=== PATIENT | female | born 1985 | race American Indian/Alaskan Native ===

== ENCOUNTER 2017-03-16 15:20 | Inpatient (IN) | payer MEDICARE ==
[2017-03-16] MEDS ORDERED: ZOFRAN IV PRN (15:23)
--- NOTE | 2017-03-16 15:33 | History and Physical Report ---
History of Present Illness Date of examination: 03/16/17 History of present illness: 31yo EDC 11/05/17 @ 7.3 weeks presented to routine NOB appt in office today with c/o severe nausea, vomiting for 4 days. Voiced unable to tolerate any type of diet including clears. Santi any additional first trimester problems. Reports severe hyperemesis with each . Rx antiemetic ineffective in the past. Reports a loss of 10 lbs. U/S in office documented single viable IUP at 7.3 weeks gestation. Past History Past Medical History: blood transfusion, hematologic disorders (Sickle Cell C diease) Past Surgical History: BIOLOGICAL SCIENCE AIDE/uterine surgery (c/S for distress and failed induction) BIOLOGICAL SCIENCE AIDE History: abnormal PAP smear (2014) Family/Genetic History: cancer Social history: no significant social history - Obstetrical History Expected Date of Delivery: 10/30/17 Actual Gestation: 7 Week(s) 4 Day(s) : 5 Para: 1 (2009 C/S) Hx # Term Pregnancies: 1 Number of Pregnancies: 0 Spontaneous Abortions: 1 Induced : 2 Number of Living Children: 1 Medications and Allergies Allergies Allergy/AdvReac Type Severity Reaction Status Date / Time No Known Allergies Allergy Verified 10/17/14 14:19 Home Medications Medication Instructions Recorded Confirmed Last Taken Type Nitrofurantoin [place]/M-Cryst 100 mg PO Q12HR #14 capsule 04/03/15 Unknown Rx [Macrobid CAP] Vit-Fe Fumar-FA [ 1 tab PO QDAY #30 tablet 04/03/15 Unknown Rx Vitamin] No Known Home Medications [No 03/16/17 03/16/17 Unknown History Reported Home Medications] Active Meds: Active Medications Dextrose/Lactated Ringer's (D5lr) 1,000 mls @ 500 mls/hr IV DIRECT OMID Stop: 03/17/17 17:59 Dextrose/Lactated Ringer's (D5lr) 1,000 mls @ 150 mls/hr IV DIRECT OMID Multivitamins/Minerals 10 ml/ (Dextrose/Lactated Ringer's) 1,010 mls @ 150 mls/ hr IV ONCE ONE Stop: 03/16/17 22:06 Metoclopramide HCl (Reglan) 10 mg IV Q6H OMID Multivitamins/Iron/Calcium ( Vitamin) 1 each PO QDAY OMID Ondansetron HCl (Zofran) 4 mg IV Q6H PRN PRN Reason: N/V unrelieved by Reglan Promethazine HCl (Phenergan) [address] Q6H OMID Results Result Diagrams: 03/17/17 06:07 03/16/17 19:22 All other labs normal. Assessment and Plan A: IUP at 7.3 weeks hyperemesis Sickle Cell C dieased P; IV hydration Antiemetics
[2017-03-16] MEDS ORDERED: D5LR 1,000 ML IV SCH (16:00)
[2017-03-16] MEDS ORDERED: INFUVITE 10 ML in D5LR 1,000 ML IV ONE (17:30)
[2017-03-16] MEDS: PHENERGAN PR SCH ×2 (17:34→23:45)
[2017-03-16] MEDS: REGLAN IV SCH ×2 (17:34→23:44)
[2017-03-16 18:44] LABS: HIV-1 Antigen p24 Non React (Non React); HIVR-1/2 Ab Non React (Non React)
[2017-03-16 19:51] LABS: Basophils % (Auto) 0.6 % (0.0-1.8); Eosinophils % (Auto) 0.1 % (0.0-4.3); Hemoglobin 6.7 gm/dl (10.1-14.3); Mean Corpuscular HGB Conc 36 % (30-34); Mean Corpuscular Hemoglobin 35 pg (28-32); Mean Corpuscular Volume 99 fl (79-97); Platelet Count 463 K/mm3 (140-440); Red Blood Count 1.89 M/mm3 (3.65-5.03); Red Cell Distribution Width 16.9 % (13.2-15.2); White Blood Count 10.4 K/mm3 (4.5-11.0)
[2017-03-16] MEDS: D5LR 1,000 ML IV SCH (19:56)
[2017-03-16 19:58] LABS: HIV-1 Antigen p24 Non React (Non React); HIVR-1/2 Ab Non React (Non React); Hematocrit 18.6 % (30.3-42.9)
[2017-03-16 20:18] LABS: Amylase 43 units/L (27-131); Lipase 27 units/L (13-60)
[2017-03-16 20:19] LABS: Anion Gap 18 mmol/L; BUN/Creatinine Ratio 15; Blood Urea Nitrogen 6 mg/dL (7-17); Calcium 9.1 mg/dL (8.4-10.2); Carbon Dioxide 23 mmol/L (22-30); Chloride 99.4 mmol/L (98-107); Glucose 184 mg/dL (65-100); Potassium 3.3 mmol/L (3.6-5.0); Sodium 137 mmol/L (137-145)
[2017-03-16 20:19] LABS: Bacteria,Urine 4+ /HPF (Negative); Bilirubin,Urine NEG (Negative); Blood,Urine NEG (Negative); Ketones,Urine 20 mg/dL (Negative); Leukocyte Esterase,Urine SM (Negative); Mucus,Urine FEW /HPF; Nitrite,Urine NEG (Negative)
[2017-03-17] MEDS: D5LR 1,000 ML IV SCH ×3 (01:48→22:55)
[2017-03-17] MEDS: REGLAN IV SCH ×4 (05:31→22:52)
[2017-03-17] MEDS: PHENERGAN PR SCH ×4 (05:33→23:00)
[2017-03-17] MEDS ORDERED: TYLENOL PO PRN (05:41)
[2017-03-17 06:21] LABS: Hemoglobin 6.2 gm/dl (10.1-14.3)
[2017-03-17] MEDS: KCL 10MEQ/100ML 10 MEQ/100 ML BAG IV SCH ×2 (06:31→10:30)
[2017-03-17 06:36] LABS: Hematocrit 17.4 % (30.3-42.9)
[2017-03-17] MEDS: PRENATAL VITAMIN PO SCH (10:30)
--- NOTE | 2017-03-17 13:39 | Hem/Onc Consultation ---
History of Present Illness - Reason for Consult Consult date: 03/17/17 - History of Present Illness Patient with history of Hb SS. Last transfused in July 2016 at [facility] [place]. Admitted with vomitting associated with . Now much better with hydration. Her normal Hb is around 7-8 per her recollection. Followed by Dr Neves at [facility] [place]. Not compliant with follow up. Past History Past Medical History: other (Hb SS disease) Social history: no significant social history Medications and Allergies Allergies Allergy/AdvReac Type Severity Reaction Status Date / Time No Known Allergies Allergy Verified 10/17/14 14:19 Home Medications Medication Instructions Recorded Confirmed Last Taken Type Nitrofurantoin [place]/M-Cryst 100 mg PO Q12HR #14 capsule 04/03/15 Unknown Rx [Macrobid CAP] Vit-Fe Fumar-FA [ 1 tab PO QDAY #30 tablet 04/03/15 Unknown Rx Vitamin] No Known Home Medications [No 03/16/17 03/16/17 Unknown History Reported Home Medications] Active Meds: Active Medications Acetaminophen (Tylenol) 1,000 mg PO Q4H PRN PRN Reason: Pain, Mild (1-3) Dextrose/Lactated Ringer's (D5lr) 1,000 mls @ 500 mls/hr IV DIRECT OMID Stop: 03/17/17 17:59 Last Admin: 03/16/17 17:34 Dose: 500 mls/hr Dextrose/Lactated Ringer's (D5lr) 1,000 mls @ 150 mls/hr IV DIRECT OMID Last Admin: 03/17/17 01:48 Dose: 150 mls/hr Metoclopramide HCl (Reglan) 10 mg IV Q6H OMID Last Admin: 03/17/17 05:31 Dose: 10 mg Multivitamins/Iron/Calcium ( Vitamin) 1 each PO QDAY OMID Ondansetron HCl (Zofran) 4 mg IV Q6H PRN PRN Reason: N/V unrelieved by Reglan Promethazine HCl (Phenergan) 25 mg CO Q6H OMID Last Admin: 03/17/17 05:33 Dose: Not Given Review of Systems All systems: negative (moderate pain) Exam - Constitutional Vitals: Last Vital Signs Temp 98.9 F 03/17/17 08:05 Pulse 75 03/17/17 08:05 Resp 18 03/17/17 08:05 BP 89/43 03/17/17 08:05 Pulse Ox 100 03/16/17 17:16 Pain Intensity (0-10): 4/10 General appearance: no acute distress - EENT Eyes: PERRL ENT: hearing intact Lymph node exam: negative cervical - Neck Neck: normal ROM - Respiratory Respiratory: bilateral: CTA - Cardiovascular Rhythm: regular Heart Sounds: Present: S1 & S2 Extremities: no ischemia - Gastrointestinal General gastrointestinal: Present: soft - Musculoskeletal Musculoskeletal: strength equal bilaterally - Neurologic Neurologic: CNII-XII intact - Psychiatric Psychiatric: appropriate mood/affect Results - Labs lab Results: Laboratory Results - last 24 hr 03/16/17 03/16/17 03/16/17 15:27 15:29 17:32 WBC RBC Hgb Hct MCV MCH MCHC RDW Plt Count Lymph % (Auto) [place] % (Auto) Eos % (Auto) Baso % (Auto) Lymph # [place] # Eos # Baso # Seg Neutrophils % Seg Neutrophils # Sodium Potassium Chloride Carbon Dioxide Anion Gap BUN Creatinine Estimated GFR BUN/Creatinine Ratio Glucose Calcium Amylase Lipase TSH 0.105 L Free T4 Urine Color Urine Turbidity Urine pH Ur Specific [place] Urine Protein Urine Glucose (UA) Urine Ketones Urine Blood Urine Nitrite Urine Bilirubin Urine Urobilinogen Ur Leukocyte Esterase Urine WBC (Auto) Urine RBC (Auto) U Epithel Cells (Auto) Urine Bacteria (Auto) Urine Mucus RPR Nonreactive Hepatitis A IgM Ab Hep Bs Antigen Hep B Core IgM Ab Hepatitis C Antibody HIV 1&2 Antibody Rapid Non react HIV P24 Antigen Non react Rubella IgG Antibody Blood Type Antibody Screen 03/16/17 03/16/17 03/16/17 17:32 19:22 19:22 WBC 10.4 RBC 1.89 L Hgb 6.7 L Hct 18.6 L* MCV 99 H MCH 35 H MCHC 36 H RDW 16.9 H Plt Count 463 H Lymph % (Auto) 20.4 [place] % (Auto) 3.2 Eos % (Auto) 0.1 Baso % (Auto) 0.6 Lymph # 2.1 [place] # 0.3 Eos # 0.0 Baso # 0.1 Seg Neutrophils % 75.7 H Seg Neutrophils # 7.9 H Sodium Potassium Chloride Carbon Dioxide Anion Gap BUN Creatinine Estimated GFR BUN/Creatinine Ratio Glucose Calcium Amylase 43 Lipase 27 TSH Free T4 Urine Color Urine Turbidity Urine pH Ur Specific [place] Urine Protein Urine Glucose (UA) Urine Ketones Urine Blood Urine Nitrite Urine Bilirubin Urine Urobilinogen Ur Leukocyte Esterase Urine WBC (Auto) Urine RBC (Auto) U Epithel Cells (Auto) Urine Bacteria (Auto) Urine Mucus RPR Hepatitis A IgM Ab Non-reactive Hep Bs Antigen Non-reactive Hep B Core IgM Ab Non-reactive Hepatitis C Antibody Non-reactive HIV 1&2 Antibody Rapid Non react HIV P24 Antigen Non react Rubella IgG Antibody Immune Blood Type Antibody Screen 03/16/17 03/16/17 03/16/17 19:22 19:22 19:22 WBC RBC Hgb Hct MCV MCH MCHC RDW Plt Count Lymph % (Auto) [place] % (Auto) Eos % (Auto) Baso % (Auto) Lymph # [place] # Eos # Baso # Seg Neutrophils % Seg Neutrophils # Sodium Potassium Chloride Carbon Dioxide Anion Gap BUN Creatinine Estimated GFR BUN/Creatinine Ratio Glucose Calcium Amylase Lipase TSH Free T4 1.29 Urine Color Urine Turbidity Urine pH Ur Specific [place] Urine Protein Urine Glucose (UA) Urine Ketones Urine Blood Urine Nitrite Urine Bilirubin Urine Urobilinogen Ur Leukocyte Esterase Urine WBC (Auto) Urine RBC (Auto) U Epithel Cells (Auto) Urine Bacteria (Auto) Urine Mucus RPR Hepatitis A IgM Ab Hep Bs Antigen Non-reactive Hep B Core IgM Ab Hepatitis C Antibody HIV 1&2 Antibody Rapid HIV P24 Antigen Rubella IgG Antibody Blood Type A POSITIVE Antibody Screen Negative 03/16/17 03/16/17 03/16/17 19:22 19:53 21:57 WBC RBC Hgb Hct MCV MCH MCHC RDW Plt Count Lymph % (Auto) [place] % (Auto) Eos % (Auto) Baso % (Auto) Lymph # [place] # Eos # Baso # Seg Neutrophils % Seg Neutrophils # Sodium 137 Potassium 3.3 L Chloride 99.4 Carbon Dioxide 23 Anion Gap 18 BUN 6 L Creatinine 0.4 L Estimated GFR > 60 BUN/Creatinine Ratio 15 Glucose 184 H Calcium 9.1 Amylase Lipase TSH Free T4 Urine Color Yellow Urine Turbidity Clear Urine pH 5.0 Ur Specific [place] 1.011 Urine Protein 30 mg/dl Urine Glucose (UA) Neg Urine Ketones 20 Urine Blood Neg Urine Nitrite Neg Urine Bilirubin Neg Urine Urobilinogen 2.0 Ur Leukocyte Esterase Sm Urine WBC (Auto) 13.0 H Urine RBC (Auto) 3.0 U Epithel Cells (Auto) 1.0 Urine Bacteria (Auto) 4+ Urine Mucus Few RPR Hepatitis A IgM Ab Hep Bs Antigen Hep B Core IgM Ab Hepatitis C Antibody HIV 1&2 Antibody Rapid HIV P24 Antigen Rubella IgG Antibody Blood Type A POSITIVE Antibody Screen Negative 03/17/17 06:07 WBC RBC Hgb 6.2 L Hct 17.4 L* MCV MCH MCHC RDW Plt Count Lymph % (Auto) [place] % (Auto) Eos % (Auto) Baso % (Auto) Lymph # [place] # Eos # Baso # Seg Neutrophils % Seg Neutrophils # Sodium Potassium Chloride Carbon Dioxide Anion Gap BUN Creatinine Estimated GFR BUN/Creatinine Ratio Glucose Calcium Amylase Lipase TSH Free T4 Urine Color Urine Turbidity Urine pH Ur Specific [place] Urine Protein Urine Glucose (UA) Urine Ketones Urine Blood Urine Nitrite Urine Bilirubin Urine Urobilinogen Ur Leukocyte Esterase Urine WBC (Auto) Urine RBC (Auto) U Epithel Cells (Auto) Urine Bacteria (Auto) Urine Mucus RPR Hepatitis A IgM Ab Hep Bs Antigen Hep B Core IgM Ab Hepatitis C Antibody HIV 1&2 Antibody Rapid HIV P24 Antigen Rubella IgG Antibody Blood Type Antibody Screen Assessment and Plan - Patient Problems (1) Anemia Current Visit: No Status: Acute Plan to address problem: Hb is lower than expected. patient insists she has SS not SC as mentioned in notes. Will transfuse PRBC. Needs outpatient follow up. She agrees. Pain control per OB service.
[2017-03-17] MEDS ORDERED: NACL 0.9% 500 ML 500 ML IV NR (13:40)
--- NOTE | 2017-03-17 13:49 | Progress Note ---
Assessment and Plan O; H/H: 6.2/17.4 A: IUP at 7.4 weeks gestation Hyperemesis Sickle Cell C diease Severe Anemia P: Opal Miner recommend blood transfusion (one unit) continue antiemetic and plan to start po meds Subjective - Subjective Date of service: 03/17/17 Interval history: 31yo EDC 11/05/17 @ 7.3 weeks presented to routine NOB appt in office today with c/o severe nausea, vomiting for 4 days. Voiced unable to tolerate any type of diet including clears. Santi any additional first trimester problems. Reports severe hyperemesis with each . Rx antiemetic ineffective in the past. Reports a loss of 10 lbs. U/S in office documented single viable IUP at 7.3 weeks gestation. Patient reports: other (Tolerating clear liquid and soft diet w/o n/V), no new complaints Objective - Vital Signs Vital Signs: Vital Signs - 12hr 03/17/17 03/17/17 04:35 08:05 Temperature 98.0 F 98.9 F Pulse Rate 84 75 Respiratory 20 18 Rate Blood Pressure 90/55 89/43 [Left] - Exam Breasts: deferred Abdomen: Present: normal appearance, soft FHR comments: U/s in office confirmed single viable 7.3 week viable IUP - Labs Labs: Abnormal Labs 03/16/17 03/16/17 03/16/17 17:32 19:22 19:22 RBC 1.89 L Hgb 6.7 L Hct 18.6 L* MCV 99 H MCH 35 H MCHC 36 H RDW 16.9 H Plt Count 463 H Seg Neutrophils % 75.7 H Seg Neutrophils # 7.9 H Potassium 3.3 L BUN 6 L Creatinine 0.4 L Glucose 184 H TSH 0.105 L Urine WBC (Auto) Crossmatch 03/16/17 03/16/17 03/17/17 19:53 21:57 06:07 RBC Hgb 6.2 L Hct 17.4 L* MCV MCH MCHC RDW Plt Count Seg Neutrophils % Seg Neutrophils # Potassium BUN Creatinine Glucose TSH Urine WBC (Auto) 13.0 H Crossmatch See Detail Laboratory Results - last 24 hr 03/16/17 03/16/17 03/16/17 15:27 15:29 17:32 WBC RBC Hgb Hct MCV MCH MCHC RDW Plt Count Lymph % (Auto) [place] % (Auto) Eos % (Auto) Baso % (Auto) Lymph # [place] # Eos # Baso # Seg Neutrophils % Seg Neutrophils # Sodium Potassium Chloride Carbon Dioxide Anion Gap BUN Creatinine Estimated GFR BUN/Creatinine Ratio Glucose Calcium Amylase Lipase TSH 0.105 L Free T4 Urine Color Urine Turbidity Urine pH Ur Specific [place] Urine Protein Urine Glucose (UA) Urine Ketones Urine Blood Urine Nitrite Urine Bilirubin Urine Urobilinogen Ur Leukocyte Esterase Urine WBC (Auto) Urine RBC (Auto) U Epithel Cells (Auto) Urine Bacteria (Auto) Urine Mucus RPR Nonreactive Hepatitis A IgM Ab Hep Bs Antigen Hep B Core IgM Ab Hepatitis C Antibody HIV 1&2 Antibody Rapid Non react HIV P24 Antigen Non react Rubella IgG Antibody Blood Type Antibody Screen Crossmatch 03/16/17 03/16/17 03/16/17 17:32 19:22 19:22 WBC 10.4 RBC 1.89 L Hgb 6.7 L Hct 18.6 L* MCV 99 H MCH 35 H MCHC 36 H RDW 16.9 H Plt Count 463 H Lymph % (Auto) 20.4 [place] % (Auto) 3.2 Eos % (Auto) 0.1 Baso % (Auto) 0.6 Lymph # 2.1 [place] # 0.3 Eos # 0.0 Baso # 0.1 Seg Neutrophils % 75.7 H Seg Neutrophils # 7.9 H Sodium Potassium Chloride Carbon Dioxide Anion Gap BUN Creatinine Estimated GFR BUN/Creatinine Ratio Glucose Calcium Amylase 43 Lipase 27 TSH Free T4 Urine Color Urine Turbidity Urine pH Ur Specific [place] Urine Protein Urine Glucose (UA) Urine Ketones Urine Blood Urine Nitrite Urine Bilirubin Urine Urobilinogen Ur Leukocyte Esterase Urine WBC (Auto) Urine RBC (Auto) U Epithel Cells (Auto) Urine Bacteria (Auto) Urine Mucus RPR Hepatitis A IgM Ab Non-reactive Hep Bs Antigen Non-reactive Hep B Core IgM Ab Non-reactive Hepatitis C Antibody Non-reactive HIV 1&2 Antibody Rapid Non react HIV P24 Antigen Non react Rubella IgG Antibody Immune Blood Type Antibody Screen Crossmatch 03/16/17 03/16/17 03/16/17 19:22 19:22 19:22 WBC RBC Hgb Hct MCV MCH MCHC RDW Plt Count Lymph % (Auto) [place] % (Auto) Eos % (Auto) Baso % (Auto) Lymph # [place] # Eos # Baso # Seg Neutrophils % Seg Neutrophils # Sodium Potassium Chloride Carbon Dioxide Anion Gap BUN Creatinine Estimated GFR BUN/Creatinine Ratio Glucose Calcium Amylase Lipase TSH Free T4 1.29 Urine Color Urine Turbidity Urine pH Ur Specific [place] Urine Protein Urine Glucose (UA) Urine Ketones Urine Blood Urine Nitrite Urine Bilirubin Urine Urobilinogen Ur Leukocyte Esterase Urine WBC (Auto) Urine RBC (Auto) U Epithel Cells (Auto) Urine Bacteria (Auto) Urine Mucus RPR Hepatitis A IgM Ab Hep Bs Antigen Non-reactive Hep B Core IgM Ab Hepatitis C Antibody HIV 1&2 Antibody Rapid HIV P24 Antigen Rubella IgG Antibody Blood Type A POSITIVE Antibody Screen Negative Crossmatch 03/16/17 03/16/17 03/16/17 19:22 19:53 21:57 WBC RBC Hgb Hct MCV MCH MCHC RDW Plt Count Lymph % (Auto) [place] % (Auto) Eos % (Auto) Baso % (Auto) Lymph # [place] # Eos # Baso # Seg Neutrophils % Seg Neutrophils # Sodium 137 Potassium 3.3 L Chloride 99.4 Carbon Dioxide 23 Anion Gap 18 BUN 6 L Creatinine 0.4 L Estimated GFR > 60 BUN/Creatinine Ratio 15 Glucose 184 H Calcium 9.1 Amylase Lipase TSH Free T4 Urine Color Yellow Urine Turbidity Clear Urine pH 5.0 Ur Specific [place] 1.011 Urine Protein 30 mg/dl Urine Glucose (UA) Neg Urine Ketones 20 Urine Blood Neg Urine Nitrite Neg Urine Bilirubin Neg Urine Urobilinogen 2.0 Ur Leukocyte Esterase Sm Urine WBC (Auto) 13.0 H Urine RBC (Auto) 3.0 U Epithel Cells (Auto) 1.0 Urine Bacteria (Auto) 4+ Urine Mucus Few RPR Hepatitis A IgM Ab Hep Bs Antigen Hep B Core IgM Ab Hepatitis C Antibody HIV 1&2 Antibody Rapid HIV P24 Antigen Rubella IgG Antibody Blood Type A POSITIVE Antibody Screen Negative Crossmatch See Detail 03/17/17 06:07 WBC RBC Hgb 6.2 L Hct 17.4 L* MCV MCH MCHC RDW Plt Count Lymph % (Auto) [place] % (Auto) Eos % (Auto) Baso % (Auto) Lymph # [place] # Eos # Baso # Seg Neutrophils % Seg Neutrophils # Sodium Potassium Chloride Carbon Dioxide Anion Gap BUN Creatinine Estimated GFR BUN/Creatinine Ratio Glucose Calcium Amylase Lipase TSH Free T4 Urine Color Urine Turbidity Urine pH Ur Specific [place] Urine Protein Urine Glucose (UA) Urine Ketones Urine Blood Urine Nitrite Urine Bilirubin Urine Urobilinogen Ur Leukocyte Esterase Urine WBC (Auto) Urine RBC (Auto) U Epithel Cells (Auto) Urine Bacteria (Auto) Urine Mucus RPR Hepatitis A IgM Ab Hep Bs Antigen Hep B Core IgM Ab Hepatitis C Antibody HIV 1&2 Antibody Rapid HIV P24 Antigen Rubella IgG Antibody Blood Type Antibody Screen Crossmatch
[2017-03-17] MEDS ORDERED: BENADRYL IV ONE (13:50)
[2017-03-17] MEDS ORDERED: TRANSDERM-SCOP TD SCH (14:00)
[2017-03-17 14:28] LABS: Bilirubin,Direct 0.4 mg/dL (0-0.2); Bilirubin,Total 2.4 mg/dL (0.1-1.2)
[2017-03-17 23:09] LABS: Hematocrit 22.9 % (30.3-42.9)
[2017-03-18] MEDS: REGLAN PO SCH ×2 (05:02→12:40)
[2017-03-18] MEDS: PHENERGAN PR SCH ×2 (05:03→12:40)
--- NOTE | 2017-03-18 08:30 | Progress Note ---
Assessment and Plan A: IUP at 7 wks Hyperemesis Sickle Cell-C Disease with transfusion of one unit of packed red blood cells Clinically improved P: Discharge today with follow up on Tuesday in office with Dr Lopez. Subjective - Subjective Date of service: 03/18/17 Principal diagnosis: Hyperemesis at 7wks, Sickle Cell C Disease Interval history: Pt feels better today. She feel ready to go home. She is tolerating clear diet without emesis and has a soft diet ordered. Patient reports: other (Tolerating clear liquid and soft diet w/o n/V), no new complaints Objective - Vital Signs Vital Signs: Vital Signs - 12hr 03/18/17 03/18/17 00:00 04:05 Temperature 99.1 F 98.0 F Pulse Rate 82 86 Respiratory 18 18 Rate Blood Pressure 98/59 95/56 [Left] - Exam Breasts: deferred Cardiovascular: Regular rate Lungs: Clear to auscultation Abdomen: Present: soft Extremities: normal - Labs Labs: Abnormal Labs 03/16/17 03/16/17 03/16/17 17:32 19:22 19:22 RBC 1.89 L Hgb 6.7 L Hct 18.6 L* MCV 99 H MCH 35 H MCHC 36 H RDW 16.9 H Plt Count 463 H Seg Neutrophils % 75.7 H Seg Neutrophils # 7.9 H Potassium 3.3 L BUN 6 L Creatinine 0.4 L Glucose 184 H Total Bilirubin Direct Bilirubin Lactate Dehydrogenase TSH 0.105 L Urine WBC (Auto) Crossmatch 03/16/17 03/16/17 03/17/17 19:53 21:57 06:07 RBC Hgb 6.2 L Hct 17.4 L* MCV MCH MCHC RDW Plt Count Seg Neutrophils % Seg Neutrophils # Potassium BUN Creatinine Glucose Total Bilirubin Direct Bilirubin Lactate Dehydrogenase TSH Urine WBC (Auto) 13.0 H Crossmatch See Detail 03/17/17 03/17/17 13:50 22:56 RBC Hgb 8.0 L Hct 22.9 L MCV MCH MCHC RDW Plt Count Seg Neutrophils % Seg Neutrophils # Potassium BUN Creatinine Glucose Total Bilirubin 2.40 H Direct Bilirubin 0.4 H Lactate Dehydrogenase 201 H TSH Urine WBC (Auto) Crossmatch Laboratory Results - last 24 hr 03/16/17 03/16/17 03/17/17 15:29 21:57 13:00 Hgb Hct Total Bilirubin Direct Bilirubin Indirect Bilirubin Lactate Dehydrogenase Vitamin B12 Urine Ketones Negative RPR Nonreactive Blood Type A POSITIVE Antibody Screen Negative Crossmatch See Detail 03/17/17 03/17/17 03/17/17 13:35 13:50 22:56 Hgb 8.0 L Hct 22.9 L Total Bilirubin 2.40 H Direct Bilirubin 0.4 H Indirect Bilirubin 2.0 Lactate Dehydrogenase 201 H Vitamin B12 425.3 Urine Ketones RPR Blood Type Antibody Screen Crossmatch
--- NOTE | 2017-03-18 09:16 | Discharge Summary ---
Providers - Providers Date of Admission: 03/16/17 16:20 Date of discharge: 03/18/17 Attending physician: PAULO WAGNER MD 03/17/17 08:09 Consult to Physician [CONS] Routine Consulting Provider: PAULO WAGNER Reason For Exam: 7 week preg. hgb C diease Place consult to:: anodizing line operator Notified:: yes Phone number called:: [phone] Was contact made?: Yes If yes, spoke with:: katie Time called:: 11:40 Comment:: left message with service Primary care physician: GUM DIPPER Hospitalization Reason for admission: other (IUP at 7 wks, hyperemesis ) Discharge diagnosis: other (IUP at 7 wks, hyperemesis, Sickle cell C Disease ) Hospital course: Pt was admitted with hyperemesis for IV antiemetics, hydration and hydration. While hospitalized, severe anemia was discovered, hematology was consulted, and she was transfused one unit of blood. By HD#2 she felt much better, was tolerating diet without emesis and was discharge home. Condition at discharge: Stable Disposition: [id number] TO HOME OR SELFCARE - Discharge Diagnoses (1) Sickle cell anemia of mother during Status: Acute (2) 7 weeks gestation of Status: Acute (3) Anemia Status: Acute Qualifiers: Anemia type: other cause Other causes of anemia: other cause, not classified Qualified Code(s): D64.89 - Other specified anemias (4) Dehydration Status: Acute Plan - Discharge Medications Prescriptions: Metoclopramide [Reglan] 10 mg PO TID #90 tab Promethazine [Phenergan] 25 mg AL Q6HR PRN #30 supp.rect PRN Reason: Nausea - Provider Discharge Summary Activity: routine Diet: routine (avoid spicy and fatty foods, avoid citrus juice and tomatoes) Additional instructions: [] Smoking cessation referral if applicable(refer to patient education folder for contact #) [] Refer to [facility] Booklet Call your doctor immediately for: * Fever > 100.5 * Heavy vaginal bleeding ( >1 pad per hour) * Severe persistent headache * Shortness of breath * Reddened, hot, painful area to leg or breast * Drainage or odor from incision. * Keep incision clean and dry at all times and follow doctor's instructions regarding bathing/showering - Follow up plan Follow up: PRIMARY CAREMD [Primary Care Provider] - 7 Days GARFIELD DEVI MD [Staff Physician] - 7 Days MICKEY STAPLES MD [Staff Physician] - 03/21/17
[2017-03-18] MEDS: PRENATAL VITAMIN PO SCH (10:05)
[2017-03-18 13:15] VITALS: BP 87/54
== END 2017-03-18 13:40 | disposition home or self-care (01) | DRG 781 ==
LOC: UNDOADMOB 15:20 → 3A 15:20 → OB 16:20 → OBSVTOIN 16:20
PROVIDERS: ADMIT Obstetrics & Gynecology; ATTEND Obstetrics & Gynecology
PROC: 30233N1 Transfusion of Nonautologous Red Blood Cells into Peripheral Vein, Percutaneous Approach (ICD-10-PCS; principal; 2017-03-17)
DX: O21.0 Mild hyperemesis gravidarum (principal); O99.011 Anemia complicating pregnancy, first trimester; D57.20 Sickle-cell/Hb-C disease without crisis; Z3A.01 Less than 8 weeks gestation of pregnancy; O26.891 Other specified pregnancy related conditions, first trimester; E86.0 Dehydration
CPT/HCPCS: 36415; 80048; 80074; 81001; 82010; 82150; 82248; 82607; 83010; 83615; 83690; 84439; 84443; 85014; 85018; 85025; 86592; 86706; 86762; 86850; 86900; 86901; 86920; 87806; J1200; J2765; J3480; J7040; J7121; P9016

== ENCOUNTER 2017-08-22 20:52 | Inpatient (IN) | payer MEDICARE ==
[2017-08-22] MEDS ORDERED: LACTATED RINGERS 500 ML IV ONE (21:51)
[2017-08-22] MEDS ORDERED: CITRATE OF MAGNESIA PO ONE (22:19)
[2017-08-22] MEDS ORDERED: MYLICON PO ONE (22:25)
[2017-08-23 00:20] LABS: Bacteria,Urine 3+ /HPF (Negative); Bilirubin,Urine NEG (Negative); Blood,Urine SM (Negative); Color,Urine Amber (Yellow); Mucus,Urine 1+ /HPF; Urobilinogen,Urine < 2.0 mg/dL (<2.0)
[2017-08-23 00:21] LABS: WBC,Urine > 182.0 /HPF (0.0-6.0)
[2017-08-23] MEDS ORDERED: MORPHINE IV ONE (00:45)
[2017-08-23] MEDS ORDERED: TYLENOL PO PRN (00:45)
[2017-08-23] MEDS ORDERED: AMBIEN PO PRN (00:45)
[2017-08-23] MEDS ORDERED: COLACE PO PRN (00:45)
--- NOTE | 2017-08-23 03:53 | History and Physical Report ---
History of Present Illness Date of examination: 08/23/17 Chief complaint: back pain History of present illness: Pt is a 31 year old -[place] female LESLEY 10/30/17 at 30w2d presents with severe right sided back pain since yesterday afternoon and was found to have a complicated UTI. She denied vaginal bleeding, contractions or leakage of fluid. She has had care at [facility] since 7 weeks complicated by hyperemesis gravidarum, Sickle Cell C Disease s/p blood transfusion in Mar 2017, previous section, EIF followed by MFM, UTI with hospitalization in Mar 2017 non-compliant with suppression, and thrombocytosis followed by Hematology. Past History Past Medical History: hematologic disorders (Sicke Cell C Disease, Anemia ) Past Surgical History: section, D&C Family/Genetic History: cancer Social history: no significant social history - Obstetrical History Expected Date of Delivery: 10/30/17 Actual Gestation: 30 Week(s) 3 Day(s) : 5 Para: 1 Hx # Term Pregnancies: 1 Number of Pregnancies: 0 Spontaneous Abortions: 2 Induced : 1 Number of Living Children: 1 Medications and Allergies Allergies Allergy/AdvReac Type Severity Reaction Status Date / Time No Known Allergies Allergy Verified 10/17/14 14:19 Home Medications Medication Instructions Recorded Confirmed Last Taken Type Vit-Fe Fumar-FA [ 1 tab PO QDAY #30 tablet 04/03/15 08/22/17 10:00 Rx Vitamin] Active Meds: Active Medications Acetaminophen (Tylenol) 650 mg PO Q4H PRN PRN Reason: Pain MILD(1-3)/Fever >100.5/BLAND Docusate Sodium (Colace) 100 mg PO Q12H PRN PRN Reason: Constipation Lactated Ringer's (Lactated Ringers) 1,000 mls @ 125 mls/hr IV DIRECT OMID Multivitamins/Iron/Calcium ( Vitamin) 1 each PO QDAY OMID Zolpidem Tartrate (Ambien) 10 mg PO ONCE PRN PRN Reason: Sleep Review of Systems All systems: negative Musculoskeletal: low back pain - Vital Signs Vital signs: Vital Signs Temp Pulse Resp BP Pulse Ox 99.3 F 92 H 16 98/55 96 08/22/17 21:43 08/22/17 21:43 08/22/17 21:43 08/22/17 21:43 08/22/17 21:43 Temp Pulse Resp BP Pulse Ox 99.3 F 114 H 16 96/52 97 08/22/17 21:43 08/23/17 03:53 08/22/17 21:43 08/22/17 22:17 08/23/17 03:53 - Physical Exam Breasts: Positive: deferred Cardiovascular: Regular rate Lungs: Positive: Clear to auscultation Abdomen: Positive: soft (gravid ) Uterus: Positive: enlarged (gravid ) Extremities: Positive: normal - Obstetrical FHR: auscultation normal Uterine Contraction Monitor Mode: External Uterine Contraction Pattern: Absent Uterine Tone Measurement Phase: Resting Results Abnormal lab results 08/22/17 Range/Units 00:18 Urine WBC (Auto) > 182.0 H (0.0-6.0) /HPF All other labs normal. Assessment and Plan A: IUP at 30w2d Complicated UTI with right CVA tenderness Sickle Cell C Disease Thrombocytosis P: Admit to antepartum service. Urine culture IV Rocephin Pain medication PRN Continue to closely monitor maternal and status
[2017-08-23] MEDS ORDERED: MORPHINE IV PRN (03:54)
[2017-08-23] MEDS ORDERED: ZOFRAN IV PRN (03:55)
[2017-08-23] MEDS ORDERED: cefTRIAXone 1 GM in NACL 0.9% 20 ML IV SCH (04:00)
[2017-08-23] MEDS ORDERED: ROCEPHIN/NS 1 GM/50 ML 1 GM/50 ML BAG IV SCH (04:00)
[2017-08-23] MEDS: PERCOCET 5/325 PO PRN ×2 (09:33→17:28)
[2017-08-23] MEDS: PRENATAL VITAMIN PO SCH (09:33)
[2017-08-23] MEDS: LACTATED RINGERS 1,000 ML IV SCH (14:00)
[2017-08-24] MEDS: LACTATED RINGERS 1,000 ML IV SCH ×2 (00:19→18:00)
[2017-08-24] MEDS: cefTRIAXone 1 GM in NACL 0.9% 20 ML IV SCH (04:08)
[2017-08-24] MEDS: PERCOCET 5/325 PO PRN ×2 (13:00→20:04)
--- NOTE | 2017-08-24 17:13 | Progress Note ---
Assessment and Plan A/P HD#2 IUP 30 weeks complicated UTI Rocephin [id number] switch to po in am and if tolerating and afebrile change cultures grew gram neg ( Urine) Subjective - Subjective Date of service: 08/24/17 Principal diagnosis: complicated UTI , sickle cell, thrombocyto Patient reports: movement normal, no new complaints, no loss of fluid, no vaginal bleeding Objective - Vital Signs Vital Signs: Vital Signs - 12hr 08/24/17 11:10 Pulse Rate 88 Blood Pressure 95/52 - Exam Breasts: normal Cardiovascular: Regular rate, Normal S1 Lungs: Clear to auscultation, Normal air movement Abdomen: Present: normal appearance, soft, normal bowel sounds. Absent: distention, tenderness, guarding Vulva: both: normal Uterus: Present: normal, firm, fundal height above umbilicus FHR: category 1 Extremities: normal Deep Tendon Reflex Grade: Normal +2 - Labs Labs: Abnormal Labs 08/22/17 00:18 Urine WBC (Auto) > 182.0 H
[2017-08-24] MEDS: PRENATAL VITAMIN PO SCH (19:15)
[2017-08-25] MEDS: cefTRIAXone 1 GM in NACL 0.9% 20 ML IV SCH (04:56)
[2017-08-25 07:39] VITALS: BP 96/52
[2017-08-25 08:18] LABS: Hemoglobin 6.6 gm/dl (10.1-14.3); Mean Corpuscular HGB Conc 33 % (30-34); Mean Corpuscular Hemoglobin 35 pg (28-32); Mean Corpuscular Volume 104 fl (79-97); Platelet Count 500 K/mm3 (140-440); Red Cell Distribution Width 17.3 % (13.2-15.2)
[2017-08-25 08:29] LABS: Hematocrit 19.8 % (30.3-42.9)
--- NOTE | 2017-08-25 09:17 | Progress Note ---
Assessment and Plan A/P HD#3 IUP 30 weeks complicated UTI Rocephin IVx 3 doses ( 3 days0 switch to po this am cultures grew gram neg ( Urine) CBC this am show severe anemia ( consider blood transfusion but will contact [facility]) MFM consult BPP Subjective - Subjective Date of service: 08/25/17 Principal diagnosis: complicated UTI , sickle cell, thrombocyto Patient reports: movement normal, no new complaints, no loss of fluid, no vaginal bleeding Objective - Vital Signs Vital Signs: Vital Signs - 12hr 08/25/17 08/25/17 08/25/17 00:00 07:40 07:43 Temperature 98.2 F 97 F L Pulse Rate 88 82 Respiratory 18 20 Rate Blood Pressure 96/52 Blood Pressure 96/52 [Right] O2 Sat by Pulse 98 Oximetry 08/25/17 08/25/17 08/25/17 07:45 07:50 07:55 Temperature Pulse Rate 88 85 90 Respiratory Rate Blood Pressure Blood Pressure [Right] O2 Sat by Pulse 97 99 97 Oximetry 08/25/17 08/25/17 08/25/17 08:00 08:05 08:10 Temperature Pulse Rate 90 91 H 92 H Respiratory Rate Blood Pressure Blood Pressure [Right] O2 Sat by Pulse 99 99 97 Oximetry 08/25/17 08/25/17 08/25/17 08:15 08:20 08:25 Temperature Pulse Rate 86 91 H 83 Respiratory Rate Blood Pressure Blood Pressure [Right] O2 Sat by Pulse 98 99 98 Oximetry 08/25/17 08/25/17 08/25/17 08:30 08:35 08:40 Temperature Pulse Rate 86 91 H 88 Respiratory Rate Blood Pressure Blood Pressure [Right] O2 Sat by Pulse 97 97 97 Oximetry 08/25/17 08/25/17 08/25/17 08:45 08:50 08:55 Temperature Pulse Rate 86 85 92 H Respiratory Rate Blood Pressure Blood Pressure [Right] O2 Sat by Pulse 97 98 96 Oximetry 08/25/17 08/25/17 08/25/17 08:56 09:00 09:05 Temperature Pulse Rate 85 91 H 90 Respiratory Rate Blood Pressure Blood Pressure [Right] O2 Sat by Pulse 94 97 97 Oximetry 08/25/17 08/25/17 08/25/17 09:07 09:10 09:13 Temperature Pulse Rate 88 93 H 95 H Respiratory Rate Blood Pressure Blood Pressure [Right] O2 Sat by Pulse 94 94 94 Oximetry 08/25/17 09:15 Temperature Pulse Rate 95 H Respiratory Rate Blood Pressure Blood Pressure [Right] O2 Sat by Pulse 94 Oximetry - Exam Breasts: normal Cardiovascular: Regular rate, Normal S1 Lungs: Clear to auscultation, Normal air movement Abdomen: Present: normal appearance, soft, normal bowel sounds. Absent: distention, tenderness, guarding Vulva: both: normal Uterus: Present: normal, firm. Absent: bogginess, tenderness FHR: category 1 Deep Tendon Reflex Grade: Normal +2 - Labs Labs: Abnormal Labs 08/22/17 08/25/17 00:18 08:00 WBC 11.1 H RBC 1.90 L Hgb 6.6 L Hct 19.8 L* MCV 104 H MCH 35 H RDW 17.3 H Plt Count 500 H Urine WBC (Auto) > 182.0 H Laboratory Results - last 24 hr 08/25/17 08:00 WBC 11.1 H RBC 1.90 L Hgb 6.6 L Hct 19.8 L* MCV 104 H MCH 35 H MCHC 33 RDW 17.3 H Plt Count 500 H
[2017-08-25] MEDS ORDERED: MACROBID PO SCH (10:30)
[2017-08-25] MEDS: PRENATAL VITAMIN PO SCH (10:32)
--- NOTE | 2017-08-25 12:47 | Event Note ---
Date: 08/25/17 seen by Jerry Rutherford recommneded 2 u blood transfusion. patient declined. has f/u with Jerry on 06 September. [id number] understnads risk of declining transfusion including cardiac failure, IUGR and complications in delivery. Recommneded transfusion prior to delivery
--- NOTE | 2017-08-25 12:52 | Discharge Summary ---
Providers - Providers Date of Admission: 08/25/17 08:54 Date of discharge: 08/25/17 Attending physician: MICKEY STAPLES 08/25/17 10:03 Consult to Physician [CONS] Urgent Comment: dr reginald wisdom [facility] [employer] Consulting Provider: [facility] Physician Instructions: please evaluate for severe anemia uti hx sickle ce Reason For Exam: 30wks ,uti hx sickle cell anemia severe anemia Primary care physician: MICKEY STAPLES Hospitalization Reason for admission: other (UTI sx ) Hospital course: patient admitted and dx with complicated uti. treated with rocephin for 3 days. swithced to oral macrobid. Seen by MFM and recommneded blood transfusion with hemoglobin of 6. patient was dicharged in stable condition with f/u on 06 September Condition at discharge: Good Disposition: DC-01 TO HOME OR SELFCARE Plan - Discharge Medications Prescriptions: Ferrous Sulfate 325 mg PO TID #60 tablet. Nitrofurantoin Monohyd/M-Cryst [Macrobid 100 mg Capsule] 100 mg PO BID #14 capsule - Provider Discharge Summary Activity: routine, no sex for 6 weeks Diet: routine Instructions: routine Additional instructions: [] Smoking cessation referral if applicable(refer to patient education folder for contact #) [] Refer to [facility]'s [facility] Booklet Call your doctor immediately for: * Fever > 100.5 * Heavy vaginal bleeding ( >1 pad per hour) * Severe persistent headache * Shortness of breath * Reddened, hot, painful area to leg or breast * Drainage or odor from incision. * Keep incision clean and dry at all times and follow doctor's instructions regarding bathing/showering - Follow up plan Follow up: MICKEY STAPLES MD [Primary Care Provider] - 7 Days
== END 2017-08-25 13:00 | disposition home or self-care (01) | DRG 781 ==
LOC: TRG 20:52 → LD 22:59 → TRG 08-23 00:45 → LD 08-23 00:46 → OBSVTOIN 08-25 08:54
PROVIDERS: ADMIT Obstetrics & Gynecology; ATTEND Obstetrics & Gynecology
DX: O23.43 Unspecified infection of urinary tract in pregnancy, third trimester (principal); O99.013 Anemia complicating pregnancy, third trimester; D57.1 Sickle-cell disease without crisis; Z3A.30 30 weeks gestation of pregnancy; Z80.9 Family history of malignant neoplasm, unspecified; D47.3 Essential (hemorrhagic) thrombocythemia
CPT/HCPCS: 36415; 81001; 85027; 87076; 87086; 87186; G0378; J0696; J2270; J7120

== ENCOUNTER 2017-08-26 14:04 | Inpatient (IN) | payer MEDICARE ==
[2017-08-26] MEDS ORDERED: NACL 0.9% 500 ML 500 ML IV NR (14:14)
[2017-08-26] MEDS ORDERED: COLACE PO PRN (14:14)
[2017-08-26] MEDS ORDERED: TYLENOL PO PRN (14:14)
[2017-08-26] MEDS ORDERED: LACTATED RINGERS 1,000 ML IV SCH (15:00)
[2017-08-26 15:29] LABS: Basophils # (Auto) 0.1 K/mm3 (0.0-0.1); Basophils % (Auto) 0.7 % (0.0-1.8); Eosinophils % (Auto) 0.3 % (0.0-4.3); Hematocrit 21.2 % (30.3-42.9); Hemoglobin 7.2 gm/dl (10.1-14.3); Lymphocytes # (Auto) 2.4 K/mm3 (1.2-5.4); Mean Corpuscular HGB Conc 34 % (30-34); Mean Corpuscular Hemoglobin 35 pg (28-32); Mean Corpuscular Volume 103 fl (79-97); Monocytes # (Auto) 0.8 K/mm3 (0.0-0.8); Monocytes % (Auto) 8.5 % (0.0-7.3); Platelet Count 652 K/mm3 (140-440); Red Blood Count 2.06 M/mm3 (3.65-5.03); Red Cell Distribution Width 18.4 % (13.2-15.2)
[2017-08-26] MEDS ORDERED: ROCEPHIN/NS 1 GM/50 ML 1 GM/50 ML BAG IV SCH (16:00)
--- NOTE | 2017-08-26 16:02 | History and Physical Report ---
History of Present Illness Date of examination: 08/26/17 Chief complaint: dizziness History of present illness: Pt is a 31 year old -Portuguese female LESLEY 10/30/17 at 30w5d who presents c/o dizziness with ambulation. The patient [facility] for complicated UTI and was found to be severely anemic with a hemoglobin of 6.6. She was offered a transfusion at that time, which she refused. After she went home, the patient began to feel dizzy with ambulation and presented to triage. She reports good movement and denies vaginal bleeding or leakage of fluid. 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 She has not yet obtained the Macrobid that she was prescribed yesterday at hospital discharge. Past History Past Medical History: hematologic disorders (Sickel Cell C Disease, Thrombocytosis, Anemia ) Past Surgical History: section, D&C Family/Genetic History: cancer Social history: no significant social history - Obstetrical History Expected Date of Delivery: 10/30/17 Actual Gestation: 30 Week(s) 5 Day(s) : 5 Para: 1 Hx # Term Pregnancies: 1 Number of Pregnancies: 0 Spontaneous Abortions: 2 Induced : 1 Number of Living Children: 1 Medications and Allergies Allergies Allergy/AdvReac Type Severity Reaction Status Date / Time No Known Allergies Allergy Verified 10/17/14 14:19 Home Medications Medication Instructions Recorded Confirmed Last Taken Type Vit-Fe Fumar-FA [ 1 tab PO QDAY #30 tablet 04/03/15 08/22/17 10:00 Rx Vitamin] Ferrous Sulfate 325 mg PO TID #60 tablet. 08/25/17 Unknown Rx Nitrofurantoin Monohyd/M-Cryst 100 mg PO BID #14 capsule 08/25/17 Unknown Rx [Macrobid 100 mg Capsule] Active Meds: Active Medications Acetaminophen (Tylenol) 650 mg PO Q4H PRN PRN Reason: Pain MILD(1-3)/Fever >100.5/BLAND Docusate Sodium (Colace) 100 mg PO Q12H PRN PRN Reason: Constipation Lactated Ringer's (Lactated Ringers) 1,000 mls @ 125 mls/hr IV DIRECT OMID Sodium Chloride (Nacl 0.9% 500 Ml) 500 mls @ 0 mls/hr IV ONCE NR Stop: 08/26/17 23:59 Ceftriaxone Sodium (Rocephin/Ns 1 Gm/50 Ml) 1 gm in 50 mls @ 100 mls/hr IV Q24HR OMID; Protocol Multivitamins/Iron/Calcium ( Vitamin) 1 each PO QDAY OMID Review of Systems All systems: negative - Vital Signs Vital signs: Vital Signs Pulse BP 78 99/55 08/26/17 15:46 08/26/17 15:46 Temp Pulse Resp BP Pulse Ox 78 99/55 08/26/17 15:46 08/26/17 15:46 - Physical Exam Breasts: Positive: deferred Cardiovascular: Regular rate Lungs: Positive: Clear to auscultation Abdomen: Positive: soft (gravid) Uterus: Positive: enlarged (gravid ) Extremities: Positive: normal - Obstetrical FHR: auscultation normal Uterine Contraction Pattern: Absent Results Result Diagrams: 08/26/17 15:13 Abnormal lab results 08/26/17 Range/Units 15:13 RBC 2.06 L (3.65-5.03) M/mm3 Hgb 7.2 L (10.1-14.3) gm/dl Hct 21.2 L (30.3-42.9) % MCV 103 H (79-97) fl MCH 35 H (28-32) pg RDW 18.4 H (13.2-15.2) % Plt Count 652 H (140-440) K/mm3 [place] % (Auto) 8.5 H (0.0-7.3) % All other labs normal. Assessment and Plan A: IUP at 30w5d Sickle Cell C Disease with Symptomatic Anemia( Dizziness) Recent hospital admission for complicated UTI (08/23/17-08/25/17) EIF followed by M Thrombocytosis Previous section P: Admit for blood transfusion Pt desires the minimal number of units that will improve her symptoms- plan to transfuse one unit then reassess clinically Intermittent monitoring
[2017-08-26] MEDS ORDERED: cefTRIAXone 1 GM in NACL 0.9% 20 ML IV SCH (17:00)
[2017-08-26 20:56] VITALS: BP 107/63
[2017-08-27] MEDS ORDERED: PRENATAL VITAMIN PO SCH (10:00)
== END 2017-08-26 21:30 | disposition home or self-care (01) | DRG 781 ==
LOC: TRG 14:04 → LD 15:05 → TRG 19:23 → LD 19:23
PROVIDERS: ADMIT Obstetrics & Gynecology; ATTEND Obstetrics & Gynecology
PROC: 30233N1 Transfusion of Nonautologous Red Blood Cells into Peripheral Vein, Percutaneous Approach (ICD-10-PCS; principal; 2017-08-26)
DX: O99.113 Other diseases of the blood and blood-forming organs and certain disorders involving the immune mechanism complicating pregnancy, third trimester (principal); O99.013 Anemia complicating pregnancy, third trimester; D57.1 Sickle-cell disease without crisis; D47.3 Essential (hemorrhagic) thrombocythemia; Z3A.30 30 weeks gestation of pregnancy; Z80.9 Family history of malignant neoplasm, unspecified; O23.43 Unspecified infection of urinary tract in pregnancy, third trimester
CPT/HCPCS: 36415; 85025; 85660; 86850; 86900; 86901; 86920; J0696; J7040; P9016

== ENCOUNTER 2017-10-20 16:30 | Outpatient (CLI) | payer MEDICARE ==
[2017-10-20 17:27] VITALS: BP 117/72
== END 2017-10-20 17:59 | disposition home or self-care (01) ==
LOC: TRG 16:30
PROVIDERS: ATTEND Obstetrics & Gynecology
DX: O47.1 False labor at or after 37 completed weeks of gestation (principal); Z3A.38 38 weeks gestation of pregnancy
CPT/HCPCS: 59025

== ENCOUNTER 2017-11-11 15:17 | Outpatient (CLI) | payer MEDICARE ==
[2017-11-11 15:48] LABS: Hematocrit 24.8 % (30.3-42.9); Hemoglobin 8.1 gm/dl (10.1-14.3); Mean Corpuscular HGB Conc 33 % (30-34); Mean Corpuscular Hemoglobin 29 pg (28-32); Mean Corpuscular Volume 88 fl (79-97); Platelet Count 998 K/mm3 (140-440); Red Blood Count 2.82 M/mm3 (3.65-5.03); Red Cell Distribution Width 15.5 % (13.2-15.2)
[2017-11-11 16:10] LABS: Albumin 3.8 g/dL (3.9-5); BUN/Creatinine Ratio 10; Blood Urea Nitrogen 12 mg/dL (7-17); Calcium 9.6 mg/dL (8.4-10.2); Hemolysis Index 2
== END 2017-11-11 15:18 | disposition home or self-care (01) ==
LOC: LAB 15:17
PROVIDERS: ATTEND Internal Medicine
DX: R94.4 Abnormal results of kidney function studies (principal)
CPT/HCPCS: 36415; 80048; 82040; 84100; 85027

== ENCOUNTER 2018-07-27 08:20 | Emergency (ER) | payer MEDICARE, OTHER ==
[2018-07-27] MEDS ORDERED: ZOFRAN IV ONE ×2 (08:42→12:02)
[2018-07-27] MEDS ORDERED: MORPHINE IV ONE ×2 (08:42→12:01)
[2018-07-27] MEDS ORDERED: NACL 0.9% 1000 ML 1,000 ML IV ONE (08:42)
[2018-07-27 08:59] LABS: Basophils # (Auto) 0.1 K/mm3 (0.0-0.1); Basophils % (Auto) 1.6 % (0.0-1.8); Eosinophils # (Auto) 0.1 K/mm3 (0.0-0.4); Eosinophils % (Auto) 1.4 % (0.0-4.3); Hemoglobin 7.4 gm/dl (10.1-14.3); Lymphocytes # (Auto) 2.6 K/mm3 (1.2-5.4); Lymphocytes % (Auto) 32.5 % (13.4-35.0); Mean Corpuscular HGB Conc 35 % (30-34); Mean Corpuscular Volume 99 fl (79-97); Monocytes # (Auto) 0.6 K/mm3 (0.0-0.8); Monocytes % (Auto) 7.5 % (0.0-7.3); Platelet Count 724 K/mm3 (140-440); Red Blood Count 2.13 M/mm3 (3.65-5.03); Red Cell Distribution Width 19.7 % (13.2-15.2)
[2018-07-27 09:07] LABS: INR 1.05 (0.87-1.13)
[2018-07-27 09:08] LABS: Partial Thromboplastin Time 28.6 Sec. (24.2-36.6)
[2018-07-27 09:20] LABS: Alanine Aminotransferase 17 units/L (7-56); Albumin 4.3 g/dL (3.9-5); BUN/Creatinine Ratio 12; Blood Urea Nitrogen 6 mg/dL (7-17); Hemolysis Index 6
--- NOTE | 2018-07-27 10:01 | Emergency Department Report ---
ED General Adult HPI - General Chief complaint: Pain General Stated complaint: SICKLE CELL ANEMIA Time Seen by Provider: 07/27/18 08:40 Source: patient Mode of arrival: Ambulatory Limitations: No Limitations - History of Present Illness Initial comments: The patient presents to the emergency department with a chief complaint of a sickle cell crisis. Patient states for the last 2 days she's had right arm and leg pain which is typical of her crisis. Patient denies chest pain, shortness of breath or abdominal pain. Patient states she normally takes Motrin for sickle cell crisis but it did not work this time and states that she did not have any Percocet left at home but has not taken Percocet quite some time -: Gradual Location: upper extremity, lower extremity Severity scale (0 -10): 6 Quality: aching, sharp Consistency: constant Improves with: rest Worsens with: movement Associated Symptoms: denies other symptoms Treatments Prior to Arrival: none - Related Data Previous Rx's Medication Instructions Recorded Last Taken Type Aspirin [Aspirin TAB] 325 mg PO QDAY tablet 01/24/18 Unknown Rx Ferrous Sulfate [Feosol 325 MG tab] 325 mg PO BID tablet 01/24/18 Unknown Rx Ferrous Sulfate [Iron 325 MG] 325 mg PO DAILY #30 tablet 01/24/18 Unknown Rx Gabapentin [Neurontin] 300 mg PO Q8HR #90 capsule 01/24/18 Unknown Rx Pantoprazole [Protonix TAB] 40 mg PO BID #80 tablet 01/24/18 Unknown Rx levETIRAcetam [Levetiracetam] 500 mg PO BID #60 tablet 01/24/18 Unknown Rx Pantoprazole [Protonix TAB] 40 mg PO QDAY #30 tablet 01/26/18 Unknown Rx levoFLOXacin [Levaquin TAB] 500 mg PO QDAY #3 tablet 01/26/18 Unknown Rx Ketorolac [Toradol] 10 mg PO Q6H PRN #20 tablet 07/27/18 Unknown Rx Oxycodone HCl/Acetaminophen 1 each PO Q6HR PRN #15 tablet 07/27/18 Unknown Rx [Percocet 7.5/325 mg] Allergies Allergy/AdvReac Type Severity Reaction Status Date / Time No Known Allergies Allergy Verified 01/03/18 12:46 ED Review of Systems ROS: Stated complaint: SICKLE CELL ANEMIA Other details as noted in HPI Comment: All other systems reviewed and negative Constitutional: denies: chills, fever Eyes: denies: eye pain, eye discharge, vision change ENT: denies: ear pain, throat pain Respiratory: denies: cough, shortness of breath, wheezing Cardiovascular: denies: chest pain, palpitations Endocrine: no symptoms reported Gastrointestinal: denies: abdominal pain, nausea, diarrhea Genitourinary: denies: urgency, dysuria, discharge Musculoskeletal: denies: back pain, joint swelling, arthralgia Skin: denies: rash, lesions Neurological: denies: headache, weakness, paresthesias Psychiatric: denies: anxiety, depression Hematological/Lymphatic: denies: easy bleeding, easy bruising ED Past Medical Hx - Past Medical History Previous Medical History?: Yes Hx Hypertension: No Hx Heart Attack/AMI: No Hx Congestive Heart Failure: No Hx Diabetes: No Hx Deep Vein Thrombosis: No Hx Renal Disease: No Hx Sickle Cell Disease: Yes Hx Seizures: Yes Hx Asthma: No Hx COPD: No Hx Dementia: No Hx HIV: No Additional medical history: Multiple blood transfusions - Surgical History Hx Open Heart Surgery: No Hx Pacemaker: No Hx Internal Defibrillator: No Additional Surgical History: , Hysterectomy, splenectomy, c section - Social History Smoking Status: Never Smoker Substance Use Type: Alcohol - Medications Home Medications: Home Medications Medication Instructions Recorded Confirmed Last Taken Type Aspirin [Aspirin TAB] 325 mg PO QDAY tablet 01/24/18 Unknown Rx Ferrous Sulfate [Feosol 325 MG tab] 325 mg PO BID tablet 01/24/18 Unknown Rx Ferrous Sulfate [Iron 325 MG] 325 mg PO DAILY #30 tablet 01/24/18 Unknown Rx Gabapentin [Neurontin] 300 mg PO Q8HR #90 capsule 01/24/18 Unknown Rx Pantoprazole [Protonix TAB] 40 mg PO BID #80 tablet 01/24/18 Unknown Rx levETIRAcetam [Levetiracetam] 500 mg PO BID #60 tablet 01/24/18 Unknown Rx Pantoprazole [Protonix TAB] 40 mg PO QDAY #30 tablet 01/26/18 Unknown Rx levoFLOXacin [Levaquin TAB] 500 mg PO QDAY #3 tablet 01/26/18 Unknown Rx Ketorolac [Toradol] 10 mg PO Q6H PRN #20 tablet 07/27/18 Unknown Rx Oxycodone HCl/Acetaminophen 1 each PO Q6HR PRN #15 tablet 07/27/18 Unknown Rx [Percocet 7.5/325 mg] ED Physical Exam - General Limitations: No Limitations General appearance: alert, in no apparent distress - Head Head exam: Present: atraumatic, normocephalic - Eye Eye exam: Present: normal appearance, PERRL, EOMI - ENT ENT exam: Present: mucous membranes dry - Neck Neck exam: Present: normal inspection - Respiratory Respiratory exam: Present: normal lung sounds bilaterally. Absent: respiratory distress - Cardiovascular Cardiovascular Exam: Present: regular rate, normal rhythm. Absent: systolic murmur, diastolic murmur, rubs, gallop - GI/Abdominal GI/Abdominal exam: Present: soft, normal bowel sounds. Absent: distended, tenderness - Extremities Exam Extremities exam: Present: normal inspection, other (patient has tenderness to palpation of the right arm and right leg which she states is typical for her sickle cell crisis) - Back Exam Back exam: Present: normal inspection - Neurological Exam Neurological exam: Present: alert, oriented X3, CN II-XII intact. Absent: motor sensory deficit - Psychiatric Psychiatric exam: Present: normal affect, normal mood - Skin Skin exam: Present: warm, dry, intact, normal color. Absent: rash ED Course Vital Signs 07/27/18 07/27/18 07/27/18 08:24 08:56 09:15 Temperature 98.8 F Pulse Rate 74 70 Respiratory 14 18 18 Rate Blood Pressure 123/80 Blood Pressure 132/63 [Left] O2 Sat by Pulse 100 99 99 Oximetry 07/27/18 07/27/18 09:18 11:12 Temperature Pulse Rate 70 Respiratory 19 19 Rate Blood Pressure Blood Pressure 120/71 [Left] O2 Sat by Pulse 99 Oximetry ED Medical Decision Making - Lab Data Result diagrams: 07/27/18 08:45 07/27/18 08:45 Lab Results 07/27/18 07/27/18 07/27/18 Range/Units 08:45 08:45 08:53 WBC 7.9 (4.5-11.0) K/mm3 RBC 2.13 L (3.65-5.03) M/mm3 Hgb 7.4 L (10.1-14.3) gm/dl Hct 21.0 L (30.3-42.9) % MCV 99 H (79-97) fl MCH 35 H (28-32) pg MCHC 35 H (30-34) % RDW 19.7 H (13.2-15.2) % Plt Count 724 H (140-440) K/mm3 Lymph % (Auto) 32.5 (13.4-35.0) % [place] % (Auto) 7.5 H (0.0-7.3) % Eos % (Auto) 1.4 (0.0-4.3) % Baso % (Auto) 1.6 (0.0-1.8) % Lymph # 2.6 (1.2-5.4) K/mm3 [place] # 0.6 (0.0-0.8) K/mm3 Eos # 0.1 (0.0-0.4) K/mm3 Baso # 0.1 (0.0-0.1) K/mm3 Seg Neutrophils % 57.0 (40.0-70.0) % Seg Neutrophils # 4.5 (1.8-7.7) K/mm3 Percent Retic 11.28 H (0.78-2.58) % PT 14.4 (12.2-14.9) Sec. INR 1.05 (0.87-1.13) APTT 28.6 (24.2-36.6) Sec. Sodium 140 (137-145) mmol/L Potassium 3.7 (3.6-5.0) mmol/L Chloride 103.2 (98-107) mmol/L Carbon Dioxide 25 (22-30) mmol/L Anion Gap 16 mmol/L BUN 6 L (7-17) mg/dL Creatinine 0.5 L (0.7-1.2) mg/dL Estimated GFR > 60 ml/min BUN/Creatinine Ratio 12 % Glucose 96 (65-100) mg/dL Calcium 9.0 (8.4-10.2) mg/dL Total Bilirubin 1.50 H (0.1-1.2) mg/dL AST 22 (5-40) units/L ALT 17 (7-56) units/L Alkaline Phosphatase 61 (35-129) units/L Lactate Dehydrogenase 191 H (91-180) units/L Total Protein 7.5 (6.3-8.2) g/dL Albumin 4.3 (3.9-5) g/dL Albumin/Globulin Ratio 1.3 % - Medical Decision Making Patient had relief of pain with 1 dose of morphine Hemoglobin compared to prior visit and is at the same level Critical care attestation.: If time is entered above; I have spent that time in minutes in the direct care of this critically ill patient, excluding procedure time. ED Disposition Clinical Impression: Sickle cell crisis Disposition: DC- TO HOME OR SELFCARE Is pt being admited?: No Does the pt Need Aspirin: No Condition: Stable Instructions: Sickle Cell Crisis (ED) Additional Instructions: return if worse Prescriptions: Oxycodone HCl/Acetaminophen [Percocet 7.5/325 mg] 1 each PO Q6HR PRN #15 tablet PRN Reason: Pain Ketorolac [Toradol] 10 mg PO Q6H PRN #20 tablet PRN Reason: Pain Referrals: JACQUE JOHN MD [Primary Care Provider] - 3-5 Days [facility] [Provider Group] - 3-5 Days [facility] [Provider Group] - 3-5 Days Time of Disposition: 11:27
[2018-07-27 13:11] VITALS: BP 136/54
== END 2018-07-27 13:10 | disposition home or self-care (01) ==
LOC: ED 08:20
DX: D57.00 Hb-SS disease with crisis, unspecified (principal)
CPT/HCPCS: 36415; 80053; 83615; 85025; 85045; 85610; 85730; 96374; 96375; 96376; 99283; J2270; J2405; J7030

== ENCOUNTER 2018-11-14 12:16 | Observation (INO) | payer OTHER, MEDICARE ==
--- NOTE | 2018-11-14 12:56 | History and Physical Report ---
History of Present Illness Chief complaint: My foot needs to get fixed History of present illness: 33 YO Female SCD, Seizure Disorder, Right Foot Bunion admitted directly at the request of Dr. Cruz. Pt seen and evaluated upon arrival. Pt denies fever, chills, CP, Palpitations, NVD, Trauma, BRBPR, Productive cough, skin rash, or recent ill contacts. Pt acknowledges generalized body aches. Pt states that she has not taken her pain medication today. No reported nursing events. Prior admission on 01/22/18 reviewed. All listed medication reconciled at time of admission. Past History Past Medical History: seizures, other (SCD, ) Past Surgical History: , hysterectomy, Other ( (Cholecystotomy tube for cholecystists, splenectomy)) Social history: , lives with family. denies: smoking, alcohol abuse, prescription drug abuse Family history: other (SCD) Medications and Allergies Allergies Allergy/AdvReac Type Severity Reaction Status Date / Time No Known Allergies Allergy Verified 01/03/18 12:46 Home Medications Medication Instructions Recorded Confirmed Last Taken Type Ferrous Sulfate [Iron 325 MG] 325 mg PO DAILY #30 tablet 01/24/18 11/14/18 Unknown Rx Review of Systems Constitutional: no weight loss, no fever, no chills Ears, nose, mouth and throat: no ear pain, no ear discharge, no tinnitis, no nose pain, no nasal congestion, no sinus pressure, no sinus pain Breasts: no change in shape, no swelling, no mass Cardiovascular: no chest pain, no orthopnea, no palpitations, no rapid/irregular heart beat, no edema, no syncope, no lightheadedness, no shortness of breath, no dyspnea on exertion, no paroxysmal nocturnal dyspnea, no claudication, no phlebitis, no high blood pressure, no leg edema, no decreased exercise tolerance Respiratory: no cough, no cough with sputum, no excessive sputum, no hemoptysis, no shortness of breath, no dyspnea on exertion, no congestion, no wheezing, no pleurisy Gastrointestinal: no nausea, no vomiting, no change in bowel habits Genitourinary Female: no pelvic pain, no flank pain, no menorrhagia, no dysuria, no urinary frequency, no urgency Rectal: no pain, no incontinence, no bleeding Musculoskeletal: other (Right Foot bunion), no neck stiffness, no neck pain, no shooting arm pain, no arm numbness/tingling, no low back pain, no shooting leg pain, no leg numbness/tingling Integumentary: no rash, no pruritis, no boils Neurological: no head injury, no transient paralysis, no paralysis, no weakness, no parathesias, no tingling, no seizures, no syncope, no tremors Psychiatric: no anxiety, no memory loss, no change in sleep habits, no sleep disturbances, no hypersomnia, no change in appetite, no change in libido, no sundeep cidal ideation Endocrine: no cold intolerance, no heat intolerance, no excessive thirst, no polydipsia, no polyuria Hematologic/Lymphatic: no easy bruising, no easy bleeding, no lymphadenopathy, no lymphedema Allergic/Immunologic: no urticaria, no allergic rhinitis Exam - Constitutional General appearance: Present: no acute distress, well-nourished - EENT Eyes: Present: PERRL ENT: hearing intact, clear oral mucosa - Neck Neck: Present: supple, normal ROM - Respiratory Respiratory effort: normal Respiratory: bilateral: CTA - Cardiovascular Heart Sounds: Present: S1 & S2. Absent: rub, click - Extremities Extremities: pulses symmetrical, No edema Peripheral Pulses: within normal limits - Abdominal General gastrointestinal: Present: soft, non-tender, non-distended, normal bowel sounds Female genitourinary: Present: normal - Integumentary Integumentary: Present: clear, warm, dry - Musculoskeletal Musculoskeletal: gait normal, strength equal bilaterally - Psychiatric Psychiatric: appropriate mood/affect, intact judgment & insight - Neurologic Neurologic: CNII-XII intact, moves all extremities Results - Labs CBC & Chem 7: 11/14/18 13:54 11/14/18 13:54 Assessment and Plan - Patient Problems (1) Sickle cell disease Current Visit: Yes Status: Acute Qualifiers: Sickle-cell associated disorders: with unspecified crisis Qualified Code(s ): D57.00 - Hb-SS disease with crisis, unspecified; D57.0 - Hb-SS disease with crisis Plan to address problem: IVF resuscitation therapy, pain control, CBC, CMP, LDH, Hematology consulted, continue medical management. (2) Bunion, right foot Current Visit: Yes Status: Acute Plan to address problem: Podiatry Consulted, Pending surgical intervention in AM, NPO after midnight, pain control (3) Anemia Current Visit: Yes Status: Acute Plan to address problem: Hematology consulted regarding SCD and possible transfusion, supportive care, Iron replacement therapy, (4) DVT prophylaxis Current Visit: Yes Status: Acute Plan to address problem: SCD to BLE while in bed, Pt ambulatory
[2018-11-14] MEDS ORDERED: NACL 0.9% 500 ML 500 ML IV SCH (13:12)
[2018-11-14 14:17] LABS: Basophils # (Auto) 0.1 K/mm3 (0.0-0.1); Eosinophils % (Auto) 0.5 % (0.0-4.3); Hematocrit 21.8 % (30.3-42.9); Hemoglobin 7.6 gm/dl (10.1-14.3); Lymphocytes # (Auto) 2.3 K/mm3 (1.2-5.4); Lymphocytes % (Auto) 27.3 % (13.4-35.0); Mean Corpuscular HGB Conc 35 % (30-34); Mean Corpuscular Volume 102 fl (79-97); Monocytes # (Auto) 0.7 K/mm3 (0.0-0.8); Monocytes % (Auto) 8.4 % (0.0-7.3); Platelet Count 597 K/mm3 (140-440); Red Blood Count 2.13 M/mm3 (3.65-5.03); Red Cell Distribution Width 19.8 % (13.2-15.2)
[2018-11-14 14:33] LABS: Alanine Aminotransferase 17 units/L (7-56); Albumin 4.4 g/dL (3.9-5); BUN/Creatinine Ratio 12; Blood Urea Nitrogen 6 mg/dL (7-17); Calcium 9.4 mg/dL (8.4-10.2); Hemolysis Index 19
[2018-11-14] MEDS ORDERED: ceFAZolin 2 GM in NACL 0.9% 100 ML IV NR (17:15)
[2018-11-14] MEDS ORDERED: ANCEF/STERILE WATER 2 GM/20 ML 2 GM/20 ML SYRINGE IV NR (18:00)
[2018-11-14] MEDS: MORPHINE IV PRN ×2 (18:36→22:09)
[2018-11-14] MEDS ORDERED: NACL 0.45% 2,000 ML IV SCH (20:00)
[2018-11-15] MEDS ORDERED: NACL 0.45% 1000 ML 1,000 ML IV SCH (02:00)
[2018-11-15] MEDS: MORPHINE IV PRN ×3 (02:07→10:30)
--- NOTE | 2018-11-15 04:13 | Event Note ---
Date: 11/14/18 hb 7.6 MCV high LDH not high I d/w dr Rica Mcintosh - her parcel post officer who saw her as OP I had seen her at [facility] in past due rt bunion sx adv 1 non sickle cell transfusion OP follow up
--- NOTE | 2018-11-15 06:48 | Consultation ---
REFERRED BY: [employer]. REASON FOR CONSULTATION: Sickle cell disease, due right bunion surgery. HISTORY OF PRESENT ILLNESS: I saw the patient in the medical floor. She is a 33-year-old female. She has a history of sickle cell disease, seizure disorder. I had seen her in ____. She ____ come to the clinic recently for the right bunion surgery. She went to the armature repairer and then saw Dr. Mimi Mcintosh, the putty patcher. I spoke to her and she was planning to give 1-2 units of transfusion. Target hemoglobin 9. At this time, no headache, no visual disturbances. No ear discharge, no chest pain, no palpitation, no abdominal pain, no vomiting, no diarrhea, no dysuria. Has foot pain. PAST MEDICAL HISTORY: Sickle cell disease homozygous. The patient has been at [facility] in the past. Based on the trend, her best hemoglobin was around 8. The patient was found to have low level of folate in the past and she is on supplement of same. The patient is not on hydroxyurea. History of splenectomy as per the notes, history of in 10/2017 and had cardiac arrest after that and massive hemorrhage. The patient underwent gallbladder surgery in the past. SOCIAL HISTORY: and lives with family members. No history of tobacco or alcohol usage. ALLERGIES: None. PHYSICAL EXAMINATION: VITAL SIGNS: Temperature 98, pulse 77, respirations 18, BP 149/84. HEENT: Pallor present. No icterus. NECK: No neck lymph nodes. HEART: S1, S2. LUNGS: Clear to auscultation. ABDOMEN: Soft. EXTREMITIES: Bunion present in foot. NEUROLOGIC: Alert, awake, oriented. LABORATORY DATA: White cell 8, hemoglobin 7.6, MCV 102, platelet 597. Potassium 3.7, creatinine 0.5, calcium 9.4, bilirubin 1.7. AST, ALT normal. LDH 217. ASSESSMENT AND PLAN: 1. Sickle cell disease based on history. Hemoglobin 7.6, MCV is elevated. The cause is unclear. The patient had major event after surgery in 10/2017. I discussed with the option of transfusion prior to surgery. The surgeon is of the view that the blood loss anticipated is very small. Ultrasound report in past and CT report mentions spleen to be normal. 2. History of low folate. The patient on replacement. MCV is elevated, not clear. We will follow. 3. History of abnormal LFTs in the past. Now, they are better. LDH is not elevated. It is low 200s. 4. The patient received IV iron in the recent past. I will avoid iron at this time. The patient had uterine surgery and does not have her cycles. She would need outpatient evaluation for hydroxyurea, high MCV and other intervention for sickle cell disease. [facility]# [id number] NM/NTS
[2018-11-15] MEDS ORDERED: CLEOCIN 600 MG/50 mL 600 MG/50 ML BAG IV NR (07:00)
[2018-11-15] MEDS ORDERED: LACTATED RINGERS 1,000 ML IV SCH (07:00)
[2018-11-15] MEDS ORDERED: NACL 0.9% IR ONE (08:38)
[2018-11-15] MEDS ORDERED: MARCAINE 0.25% INFILTRATI ONE (08:38)
[2018-11-15] MEDS ORDERED: XYLOCAINE 1% 20 mL INFILTRATI ONE (08:38)
[2018-11-15] MEDS ORDERED: DECADRON IM ONE (08:52)
[2018-11-15 09:50] VITALS: BP 104/65
[2018-11-15] MEDS ORDERED: FEOSOL PO SCH (10:00)
--- NOTE | 2018-11-15 13:12 | Anesthesia Day of Surgery ---
Anesthesia Day of Surgery - Day of Surgery Patient Examined: Yes Patient H&P Reviewed: Yes Patient is NPO: Yes
--- NOTE | 2018-11-15 13:12 | Anesthesia Consultation ---
Anesthesia Consult and Med Hx Date of service: 11/15/18 - Airway Anesthetic Teeth Evaluation: Good ROM Head & Neck: Adequate Mental/Hyoid Distance: Adequate Mallampati Class: Class II Intubation Access Assessment: Good - Pulmonary Exam CTA: Yes - Cardiac Exam Cardiac Exam: RRR - Pre-Operative Health Status ASA Pre-Surgery Classification: ASA2 Proposed Anesthetic Plan: General - Pulmonary Hx Smoking: No Hx Asthma: No SOB: Yes (admitted with dysnpea; now resolved) COPD: No Hx Pneumonia: No - Cardiovascular System Hx Hypertension: No Hx Heart Attack/AMI: No Hx Angina: Yes (admitted with chest pain; neg cardiac work up. Presumed 2/2 v aso-occlusion) Hx Pacemaker: No Hx Internal Defibrillator: No - Central Nervous System Hx Seizures: Yes CVA: No Hx Psychiatric Problems: No - Endocrine Hx Renal Disease: No Hx End Stage Renal Disease: No Hx Hypothyroidism: No Hx Hyperthyroidism: No - Hematic Hx Anemia: No Hx Sickle Cell Disease: Yes - Other Systems Hx Alcohol Use: Yes ([facility]) Hx Substance Use: No Hx Cancer: No
--- NOTE | 2018-11-15 13:13 | Post Anesthesia Evaluation ---
- Post Anesthesia Evaluation Patient Participated: Yes Airway Patent: Yes Stable Respiratory Function: Yes Nausea/Vomiting: No Temp > 96.8F: Yes Pain Manageable: Yes Adequeate Hydration: Yes Anesthesia Complications: No Block Receding Appropriately: Not Applicable Patient on Ventilator: No
[2018-11-15] MEDS ORDERED: NACL 0.9% 1000 ML 1,000 ML IV ONE (14:15)
--- NOTE | 2018-11-15 14:17 | Discharge Summary ---
Providers - Providers Date of Admission: 11/14/18 13:31 Attending physician: FIGUEROA WATTS MD 11/14/18 13:33 Consult to Anesthesiology [CONS] Urgent Consulting Provider: NAVA ANESTHESIA NICHOL SIFUENTES Reason For Exam: PREOP, MAC ANESTHESIA, PLAN RT. FOOT BUNIONECTOMY 11/14/18 13:39 Consult to Physician [CONS] Routine Comment: Consulting Provider: SCOTTIE CRUZ Physician Instructions: Reason For Exam: PLANNED SURGERY RT. FOOT BUNIONECTOMY 11/14/18 13:44 Consult to Physician [CONS] Urgent Comment: Consulting Provider: NAEEM MITTAL Physician Instructions: Reason For Exam: SICKLE CELL ANEMIA, PREOP [facility] Reason for admission: right foot pain Hospital course: 33 YO Female SCD, Seizure Disorder, Right Foot Bunion admitted directly at the request of Dr. Cruz. Pt seen and evaluated upon arrival. Pt denies fever, chills, CP, Palpitations, NVD, Trauma, BRBPR, Productive cough, skin rash, or recent ill contacts. Pt acknowledges generalized body aches. Pt states that she has not taken her pain medication today. No reported nursing events. Prior admission on 01/22/18 reviewed. Patient Underwent surgery and was successful and given bolus fluids subsequently and discharged. Right foot Bunion Sickle cell disease Anemia of chronic disease secondary to sickle cell Seizure Disorder Disposition: DC-01 TO HOME OR SELFCARE Time spent for discharge: 35 mins Core Measure Documentation - Palliative Care Palliative Care/ Comfort Measures: Not Applicable - Core Measures Any of the following diagnoses?: none Exam - Constitutional Vitals: Temp Pulse Resp BP Pulse Ox 97.9 F 63 16 104/65 100 11/15/18 09:15 11/15/18 09:15 11/15/18 09:15 11/15/18 09:15 11/15/18 09:15 General appearance: Present: no acute distress, well-nourished - EENT Eyes: Present: PERRL, EOM intact ENT: hearing intact, clear oral mucosa - Neck Neck: Present: supple, normal ROM - Respiratory Respiratory effort: normal Respiratory: bilateral: CTA - Cardiovascular Rhythm: regular Heart Sounds: Present: S1 & S2, systolic murmur - Extremities Extremities: no ischemia, pulses intact, pulses symmetrical, No edema, normal temperature, normal color, Full ROM Peripheral Pulses: within normal limits - Abdominal General gastrointestinal: Present: soft, non-tender, non-distended, normal bowel sounds - Integumentary Integumentary: Present: clear, warm, dry - Musculoskeletal Musculoskeletal: strength equal bilaterally - Psychiatric Psychiatric: appropriate mood/affect, intact judgment & insight, memory intact, cooperative - Neurologic Neurologic: CNII-XII intact, moves all extremities - Allied Health Allied health notes reviewed: nursing Plan Activity: advance as tolerated, fall precautions Diet: low fat Special Instructions: record daily BP diary Follow up with: WASHINGTON POWELL MD [Primary Care Provider] - 7 Days SCOTTIE CRUZ DPM [Staff Physician] - 7 Days NAEEM MITTAL MD [Staff Physician] - 7 Days Prescriptions: oxyCODONE /ACETAMINOPHEN [Percocet 5/325] 1 tab PO Q6HR PRN #14 tablet PRN Reason: Pain
--- NOTE | 2018-11-15 14:57 | Operative Report ---
PREOPERATIVE DIAGNOSIS: Bunion deformity, right foot. POSTOPERATIVE DIAGNOSIS: Bunion deformity, right foot, status post bunionectomy. SURGICAL PROCEDURE: Modified Escobar bunionectomy, right foot. ANESTHESIA: Monitored anesthesia care with IV sedation. TOURNIQUET: None. ESTIMATED BLOOD LOSS: Less than 10 mL. PROCEDURE IN DETAIL: The patient was brought into the operating room, placed on the operating table in supine position. Following intravenous sedation, the patient was given 600 mg of IV Cleocin after adequate sedation. There to be noted the foot was cleansed with Betadine solution and alcohol. There to be noted the patient is a sickle patient who was admitted for 23-hour evaluation and 1 unit of blood was administered prior to today's surgery. At this time, after adequate local anesthesia, the foot was scrubbed, prepped and draped in the usual aseptic manner and the procedure was begun. A 6 cm linear longitudinal incision was made at the medial aspect of the right great toe followed by both sharp and blunt dissection with cauterization of the affected area. At this particular time, all bleeders were cauterized without incident. Deep dissection carried down to the first metatarsophalangeal joint in which a capsulotomy was thus performed, thus exposing a prominent first metatarsal head, proximal phalanx base and dorsal first metatarsal head. With the use of a sagittal saw, a 3 mm wedge of bone was removed from the medial metatarsal head along with 2 mm wedge dorsally at first metatarsal and 2 mm wedge at the medial aspect of the proximal phalanx. At this time, a medial approach was used to perform an adductor release with good reduction of the deformity. All rough edges were contoured with a rotating football bur, 4.0. At this time, the area was flushed copiously with normal sterile saline and capsulorrhaphy was thus performed and deep closure was performed with 3.0 Vicryl followed by 4.0 Vicryl and 4.0 subcuticular stitches. A 1 mL of dexamethasone phosphate was infiltrated into the affected site. Area was dressed with Steri-Strips, iodine, fluffs, and Shelia. The patient tolerated the procedure and anesthesia well and will be readmitted to the floor and the patient will be discharged home only after clearance with the hospitalist, Dr. Chopra and the patient has been cleared by [facility], Dr. Dempsey's patient. The patient will be discharged home with both written and oral instructions, postop surgical shoe with weightbearing to tolerance. [facility]# [id number] SHLOMO/NTS
== END 2018-11-15 18:30 | disposition home or self-care (01) ==
LOC: UNDOADMIN 12:16 → 3A 12:16 → PREINTOOBSV 13:04 → 3B-SURG 13:31
PROVIDERS: ADMIT Internal Medicine; ATTEND Internal Medicine
DX: M21.611 Bunion of right foot (principal); D57.00 Hb-SS disease with crisis, unspecified; G40.909 Epilepsy, unspecified, not intractable, without status epilepticus
CPT/HCPCS: 28292; 36415; 36430; 80053; 83615; 85025; 85660; 86850; 86900; 86901; 86920; 87116; 96374; 96375; 96376; G0378; G0379; J1100; J2270; J7030; J7040; P9016

== ENCOUNTER 2019-02-01 14:19 | Emergency (ER) | payer OTHER, MEDICARE ==
[2019-02-01 14:29] VITALS: BP 119/67
--- NOTE | 2019-02-01 14:52 | Emergency Department Report ---
ED Eye Problem HPI - General Chief complaint: Eye Problems Stated complaint: VISUAL ISSUES/CONTACTS Time Seen by Provider: 02/01/19 14:29 Source: patient Mode of arrival: Ambulatory Limitations: No Limitations - History of Present Illness Initial comments: slept in contacts and now has bilateral eye pain with photophobia. no discharge or swelling. no nasal congesiton MD chief complaint: eye pain Onset Description: sudden Place: home If Injury: direct trauma Eye Symptoms: burning, pain, decreased vision Severity: mild, moderate If Pain, Quality: burning Consistency: constant - Related Data Previous Rx's Medication Instructions Recorded Last Taken Type Ferrous Sulfate [Iron 325 MG] 325 mg PO DAILY #30 tablet 01/24/18 Unknown Rx oxyCODONE /ACETAMINOPHEN [Percocet 1 tab PO Q6HR PRN #14 tablet 11/15/18 Unknown Rx 5/325] Ciprofloxacin HCl [Ciloxan] 1 drop OP TID #1 bottle 02/01/19 Unknown Rx Ketorolac Tromethamine [Ketorolac 2 drop OP Q6HR #1 bottle 02/01/19 Unknown Rx Tromethamine 0.4% opth soln] Allergies Allergy/AdvReac Type Severity Reaction Status Date / Time vancomycin Allergy Itching Verified 02/01/19 14:22 ED Review of Systems ROS: Stated complaint: VISUAL ISSUES/CONTACTS Other details as noted in HPI Comment: All other systems reviewed and negative ED Past Medical Hx - Past Medical History Hx Hypertension: No Hx Heart Attack/AMI: No Hx Congestive Heart Failure: No Hx Diabetes: No Hx Deep Vein Thrombosis: No Hx Renal Disease: No Hx Sickle Cell Disease: Yes Hx Seizures: Yes Hx Asthma: No Hx COPD: No Hx Dementia: No Hx HIV: No Additional medical history: Multiple blood transfusions - Surgical History Hx Open Heart Surgery: No Hx Pacemaker: No Hx Internal Defibrillator: No Additional Surgical History: , Hysterectomy, splenectomy, c section - Social History Smoking Status: Never Smoker Substance Use Type: None - Medications Home Medications: Home Medications Medication Instructions Recorded Confirmed Last Taken Type Ferrous Sulfate [Iron 325 MG] 325 mg PO DAILY #30 tablet 01/24/18 11/14/18 Unknown Rx oxyCODONE /ACETAMINOPHEN [Percocet 1 tab PO Q6HR PRN #14 tablet 11/15/18 Unknown Rx 5/325] Ciprofloxacin HCl [Ciloxan] 1 drop OP TID #1 bottle 02/01/19 Unknown Rx Ketorolac Tromethamine [Ketorolac 2 drop OP Q6HR #1 bottle 02/01/19 Unknown Rx Tromethamine 0.4% opth soln] ED Physical Exam - General Limitations: No Limitations General appearance: alert, in no apparent distress - Head Head exam: Present: atraumatic, normocephalic - Eye Eye exam: Present: normal appearance, PERRL, EOMI, other. Absent: nystagmus Pupils: Present: normal accommodation. Absent: irregular, unequal - ENT ENT exam: Present: mucous membranes moist - Neck Neck exam: Present: normal inspection - Respiratory Respiratory exam: Present: normal lung sounds bilaterally. Absent: respiratory distress - Cardiovascular Cardiovascular Exam: Present: regular rate, normal rhythm. Absent: systolic murmur, diastolic murmur, rubs, gallop - GI/Abdominal GI/Abdominal exam: Present: soft, normal bowel sounds - Extremities Exam Extremities exam: Present: normal inspection - Back Exam Back exam: Present: normal inspection - Neurological Exam Neurological exam: Present: alert, oriented X3 - Psychiatric Psychiatric exam: Present: normal affect, normal mood - Skin Skin exam: Present: warm, dry, intact, normal color. Absent: rash ED Course Vital Signs 02/01/19 14:25 Temperature 98.1 F Pulse Rate 78 Respiratory 18 Rate Blood Pressure 119/67 O2 Sat by Pulse 98 Oximetry Critical care attestation.: If time is entered above; I have spent that time in minutes in the direct care of this critically ill patient, excluding procedure time. ED Disposition Clinical Impression: Eye pain Disposition: DC-01 TO HOME OR SELFCARE Is pt being admited?: No Does the pt Need Aspirin: No Condition: Stable Instructions: Eye Pain (ED), Conjunctivitis (ED), Corneal Abrasion (ED) Referrals: EMA ALEJANDRO MD [Staff Physician] - 24 Hours [facility] [Provider Group] - 2-3 Days
== END 2019-02-01 15:00 | disposition home or self-care (01) ==
LOC: ED 14:19
DX: H57.13 Ocular pain, bilateral (principal); Z88.1 Allergy status to other antibiotic agents; Z79.899 Other long term (current) drug therapy; Z90.710 Acquired absence of both cervix and uterus; Z90.81 Acquired absence of spleen
CPT/HCPCS: 99281

== ENCOUNTER 2019-06-14 08:37 | Emergency (ER) | payer OTHER, MEDICARE ==
[2019-06-14 08:46] VITALS: BP 132/51
--- NOTE | 2019-06-14 10:26 | Emergency Department Report ---
Chief Complaint: Dental/Oral Stated Complaint: TOOTHACHE - HPI History of Present Illness: 33-year-old -[place] female presents to the emergency room complaining of toothache since yesterday. Patient states that she did have problems with this tooth before and it had improved and now starting yesterday she started to have pain. Patient has not followed up with a dentist but does have one. Patient states has been taking 800 mg of Motrin which she reports has not helped much. Patient denies any fever chills no nausea no vomiting. Patient does not have any swelling to her jaw. - Exam Vital Signs: Vital Signs 06/14/19 08:44 Temperature 98.6 F Pulse Rate 71 Respiratory 18 Rate Blood Pressure 132/51 O2 Sat by Pulse 96 Oximetry Physical Exam: Patient is alert and oriented x3 no acute distress. No facial swelling tooth #20 is decayed Patient is ambulatory without difficulties. MSE screening note: Focused history and physical exam performed. Due to findings the following was ordered: 33-year-old -[place] female presents to the emergency room complaining of toothache since yesterday. Patient states that she did have problems with this tooth before and it had improved and now starting yesterday she started to have pain. Patient has not followed up with a dentist but does have one. Patient states has been taking 800 mg of Motrin which she reports has not helped much. Patient denies any fever chills no nausea no vomiting. Patient does not have any swelling to her jaw. Recommend patient to continue with ibuprofen and Tylenol and to follow-up with a dentist as she needs to get this tooth as alf decayed from a cavity. [place] [facility] [place] SCREENING EXAM-LEFT Is pt being admited?: No Does the pt Need Aspirin: No Condition: Stable Referrals: PRIMARY CARE, [Primary Care Provider] - 3-5 Days [facility] [Outside] - 3-5 Days
== END 2019-06-14 09:59 | disposition left against medical advice (07) ==
LOC: ED 08:37
DX: K08.89 Other specified disorders of teeth and supporting structures (principal); Z88.1 Allergy status to other antibiotic agents
CPT/HCPCS: 99281

== ENCOUNTER 2020-02-02 22:15 | Emergency (ER) | payer OTHER, MEDICARE, MEDICAID ==
--- NOTE | 2020-02-03 02:08 | Emergency Department Report ---
ED Abdominal Pain HPI - General Chief Complaint: Abdominal Pain Stated Complaint: SEVERE CONSTIPATION/RECENTLY DISCHARGED FROM [place] Time Seen by Provider: 02/03/20 01:49 Source: patient Mode of arrival: Ambulatory Limitations: No Limitations - History of Present Illness Initial Comments: 34-year-old female, history of sickle cell anemia, presents to ED with constipation. Patient is here requesting an enema. Patient states she was hospitalized at [place] over the last 3 to 4 weeks, discharged 4 days ago. States she was diagnosed with a kidney issue following a renal biopsy. While in the hospital patient was on Percocet for pain. She reports abdominal distention over the last 3 weeks. States her abdomen is unchanged. Patient states she was given multiple medications for her constipation which only allowed her to pass very small amounts of stool. Patient states she was offered an enema prior to being discharged but she did not think that she needed it. Patient states she thought she could try some remedies at home that will work for her, however they have not. Patient states she was given multiple things including mag citrate, lactulose, stool softeners. Patient is refusing any blood work or imaging at this time. States she only needs an enema. Complaint: other (Constipation) -: week(s) (3) Severity: severe Quality: fullness Improves With: nothing Worsens With: nothing Associated Symptoms: denies: nausea, vomiting, fever - Related Data Previous Rx's Medication Instructions Recorded Last Taken Type Ferrous Sulfate [Iron 325 MG] 325 mg PO DAILY #30 tablet 01/24/18 Unknown Rx oxyCODONE /ACETAMINOPHEN [Percocet 1 tab PO Q6HR PRN #14 tablet 11/15/18 Unknown Rx 5/325] Ciprofloxacin HCl [Ciloxan] 1 drop OP TID #1 bottle 02/01/19 Unknown Rx Ketorolac Tromethamine [Ketorolac 2 drop OP Q6HR #1 bottle 02/01/19 Unknown Rx Tromethamine 0.4% opth soln] Allergies Allergy/AdvReac Type Severity Reaction Status Date / Time vancomycin Allergy Itching Verified 06/14/19 08:39 ED Review of Systems ROS: Stated complaint: SEVERE CONSTIPATION/RECENTLY DISCHARGED FROM [place] Other details as noted in HPI Comment: All other systems reviewed and negative Constitutional: denies: fever Gastrointestinal: constipation. denies: vomiting ED Past Medical Hx - Past Medical History Previous Medical History?: Yes Hx Hypertension: No Hx Heart Attack/AMI: No Hx Congestive Heart Failure: No Hx Diabetes: No Hx Deep Vein Thrombosis: No Hx Renal Disease: No Hx Sickle Cell Disease: Yes Hx Seizures: Yes Hx Asthma: No Hx COPD: No Hx Dementia: No Hx HIV: No Additional medical history: Multiple blood transfusions - Surgical History Past Surgical History?: Yes Hx Open Heart Surgery: No Hx Pacemaker: No Hx Internal Defibrillator: No Additional Surgical History: , Hysterectomy, splenectomy, c section - Social History Smoking Status: Never Smoker Substance Use Type: None - Medications Home Medications: Home Medications Medication Instructions Recorded Confirmed Last Taken Type Ferrous Sulfate [Iron 325 MG] 325 mg PO DAILY #30 tablet 01/24/18 11/14/18 Unknown Rx oxyCODONE /ACETAMINOPHEN [Percocet 1 tab PO Q6HR PRN #14 tablet 11/15/18 Unknown Rx 5/325] Ciprofloxacin HCl [Ciloxan] 1 drop OP TID #1 bottle 02/01/19 Unknown Rx Ketorolac Tromethamine [Ketorolac 2 drop OP Q6HR #1 bottle 02/01/19 Unknown Rx Tromethamine 0.4% opth soln] ED Physical Exam - General Limitations: No Limitations General appearance: alert, in no apparent distress - Head Head exam: Present: atraumatic, normocephalic - Eye Eye exam: Present: normal appearance, EOMI - ENT ENT exam: Present: mucous membranes moist - Neck Neck exam: Present: normal inspection - Respiratory Respiratory exam: Present: normal lung sounds bilaterally. Absent: respiratory distress - Cardiovascular Cardiovascular Exam: Present: regular rate, normal rhythm - GI/Abdominal GI/Abdominal exam: Present: soft, distended. Absent: tenderness - Extremities Exam Extremities exam: Present: pedal edema - Neurological Exam Neurological exam: Present: alert, oriented X3 - Psychiatric Psychiatric exam: Present: normal affect, normal mood - Skin Skin exam: Present: warm, dry, intact, normal color ED Course Vital Signs 02/02/20 23:13 Temperature 98.8 F Pulse Rate 96 H Respiratory 18 Rate Blood Pressure 130/88 O2 Sat by Pulse 99 Oximetry ED Medical Decision Making - Medical Decision Making Discussed with patient. Will provide soapsuds enema that she can administer in the comfort of her own home, which patient prefers. Patient advised to follow- up with her regular physicians. Return precautions given. Critical care attestation.: If time is entered above; I have spent that time in minutes in the direct care of this critically ill patient, excluding procedure time. ED Disposition Clinical Impression: Constipation Disposition: DC-01 TO HOME OR SELFCARE Is pt being admited?: No Condition: Stable Instructions: Constipation (ED) Referrals: PRIMARY CARE, [Referring] - 3-5 Days [facility] [Provider Group] - 3-5 Days Time of Disposition: 02:16
[2020-02-03 03:25] VITALS: BP 136/86
== END 2020-02-03 03:25 | disposition home or self-care (01) ==
LOC: ED 22:15
DX: K59.00 Constipation, unspecified (principal); D57.00 Hb-SS disease with crisis, unspecified; R56.9 Unspecified convulsions; Z90.710 Acquired absence of both cervix and uterus; Z98.890 Other specified postprocedural states; Z79.2 Long term (current) use of antibiotics; Z79.899 Other long term (current) drug therapy; Z88.8 Allergy status to other drugs, medicaments and biological substances
CPT/HCPCS: 99282